=== PATIENT | male | born 1990 | race Two or more races ===

== ENCOUNTER 2024-09-01 17:01 | Emergency (ER) | payer MEDICAID, SELFPAY ==
--- NOTE | 2024-09-01 17:32 | PC.NURSE ---
NO ANSWER WHEN CALLED TO BE SEEN BY PROVIDER
--- NOTE | 2024-09-01 17:48 | PC.NURSE ---
no answer in lobby or in front of ER
--- NOTE | 2024-09-01 18:10 | PC.NURSE ---
ATTEMPTED TO CALL PATIENT 3 TIMES WITH NO ANSWER; PATIENT ELOPED FROM THE EMERGENCY DEPARTMENT.
--- NOTE | 2024-09-01 18:21 | PD.EDADDENDU ---
Emergency Room Addendum Addendum Narrative: I was told the patient eloped. I did not see the patient. Vivek White MD
== END 2024-09-01 18:12 | disposition left against medical advice (07) ==
LOC: SERX 18:10
PROVIDERS: Emergency Provider Emergency Medicine
DX: Z53.21 Procedure and treatment not carried out due to patient leaving prior to being seen by health care provider (principal)

== ENCOUNTER 2024-10-07 17:17 | Emergency (ER) | payer MEDICAID, SELFPAY ==
[2024-10-07 17:23] VITALS: BP 162/100; PULSE 127; RESP 20; TEMP 36.9; O2SAT 95
--- NOTE | 2024-10-07 18:18 | EKG_ITS ---
[facility] Test Date: 2024-10-07 Pat Name: BETH CABRERA Department: Room: - Gender: Male Field Sampling Technician: : 1990 Requested By: ED Temporary Provider Order Number: [id number] Reading MD: ED Temporary Provider Measurements Intervals [place] Rate: 102 P: 6 MD: 141 QRS: -10 QRSD: 92 T: -9 QT: 361 QTc: 471 Interpretive Statements SINUS TACHYCARDIA MODERATE VOLTAGE CRITERIA FOR LVH, CONSIDER NORMAL VARIANT [MEETS CRITERIA IN ONE OF: R(aVL), S(V1), R(V5), R(V5/V6)+S(V1)] ABNORMAL RHYTHM ECG No previous ECG available for comparison /store/S0/[id number]/ecg/[id number].pdf
--- NOTE | 2024-10-07 18:26 | PD.EDADULT ---
ED General RME/HPI General Chief complaint: Anxiety Stated complaint: HALLUCINATIONS s/p COCAINE USE Time Seen by Provider: 10/07/24 18:22 Arrival date/time: 10/07/24 17:17 Chest pain, on drugs per mother HPI ongoing for the past 2 days. Mother at bedside states the patient was calling making very bizarre statements that people are shooting at him. At the time of the exam the patient complains of chest pain and side pain. Patient is awake alert oriented somewhat distracted no other complaints. Patient states he has relapsed and backs on cocaine for the past 2 days. Patient states he has been clean for the past month. Mother outside the room states the patient relapses every month. Related Data Previous Rx's ?Medication ?Instructions ?Recorded cyclobenzaprine 10 mg tablet 10 mg PO HS #10 tabs 09/09/18 ibuprofen 800 mg tablet (IBU) 800 mg PO TID PRN pain #30 tabs 09/09/18 ibuprofen 800 mg tablet 800 mg PO Q6H pain #20 tabs 07/15/24 Allergies Allergy/AdvReac Type Severity Reaction Status Date / Time No Known Allergies Allergy Verified 09/01/24 17:02 Review of Systems Review of Systems Narrative Review of Systems: GEN: No fever, no chills, no weight loss EYES: No discharge, no visual changes, no pain HEENT: No ear pain, no congestion, no sore throat PULM: No shortness of breath, no cough, no congestion CV: + chest pain, no dyspnea on exertion, no palpitations GI: No nausea, no vomiting, no diarrhea, no pain, no constipation : No frequency, no urgency, no dysuria MUSC/SKEL: No joint pain, no back pain SKIN: No rash PSYCH: No hallucinations, no depression HEME/LYMPH: No easy bleeding or bruising tendencies NEURO: No weakness, no headache Past Medical History Past Medical History CARDIAC: Negative Congestive Heart Failure RESPIRATORY: Negative Chronic Obstructive Pulmonary Disease (COPD) GENITOURINARY: Negative Renal Disease ENDOCRINE: Negative Diabetes Mellitus Type 1 or Diabetes Mellitus Type 2 Social History SMOKING STATUS: Never smoker ED Exam Narrative Physical exam: [General: Obese nervous fidgety, but not in any acute distress Head normocephalic HEENT: Within acceptable limits Neck is supple nontender Chest equal chest rise left anterior chest tender to palpation. No ecchymosis induration ulceration Respiratory: Clear to auscultation no wheezes crackles or rubs CV: Rate rhythm is regular no murmurs rubs or clicks Abdomen is distended secondary to body habitus soft nontender no masses positive bowel sounds all 4 quadrants Back: No CVA tenderness no spinous process tenderness from cervical spine thoracic and lumbar spine Skin: Intact no petechiae rash induration ulceration or crepitus Extremities: Moving all extremity against resistance cap refill less than 2 seconds neurosensory intact Neuro: Awake alert oriented x3 Glascow coma 15 no focal deficits] Course Quality Measures none Orders Category Date Time Status EKG (ED ONLY) *Do not use* NOW Care 10/07/24 18:18 Completed EKG (ED Only) Stat Exams 10/07/24 18:18 Draft CBC Stat Lab 10/07/24 19:15 Completed CMP [Comprehensive Metabolic Panel] Stat Lab 10/07/24 19:15 Completed Creatine Kinase Stat Lab 10/07/24 19:15 Completed Creatine Kinase Stat Lab 10/07/24 21:16 Completed Drug Screen,Urine Stat Lab 10/07/24 19:58 Completed Urinalysis Stat Lab 10/07/24 19:58 Completed Sodium Chloride 0.9% 1000 ml [Ns] 1,000 ml Med 10/07/24 19:51 Discontinued IV 999 mls/hr Sodium Chloride 0.9% 1000 ml [Ns] 1,000 ml Med 10/07/24 19:51 Discontinued IV 999 mls/hr Vital Signs Vital signs: Vital Signs Temperature 98.5 F 10/07/24 17:23 Pulse Rate 127 H 10/07/24 17:23 Respiratory Rate 20 10/07/24 17:23 Blood Pressure 162/100 H 10/07/24 17:23 Pulse Oximetry (%) 95 10/07/24 17:23 Oxygen Delivery Method Room Air 10/07/24 17:23 [facility] Patient data External records reviewed:: [facility] previous records and EMS form Clinical information provided by:: patient and EMS Social determinants that could affect healthcare access:: none Patient has the following chronic illnesses:: None How is presenting disease/condition affected by chronic disease/condition?: uneffected by Evaluation data The following diagnostics were reviewed and interpreted by me:: lab results and EKG tracing(s) Lab and/or radiology exams considered but not ordered:: EKG performed at 1832 shows a ventricular rate of 102 [place] interval of 141 QRS of 92 QTc of 420 this is sinus tachycardia. CBC shows a mild leukocytosis no anemia thrombocytopenia CMP shows no significant electrolyte imbalances renal impairment transaminitis or T. bili elevation Creatinine kinase is elevated 470. Creatinine kinase is decreased to 363. Interpretation Summary: Cocaine abuse, early rhabdo Medications Medications considered but not ordered:: None Medication administrations:: Medication Administration History Discontinued Medications Sodium Chloride (Ns) 1,000 mls @ 999 mls/hr IV .Q1H1M ONE Stop: 10/07/24 20:51 Last Infusion: 10/07/24 21:56 Dose: Infused Documented By: Admin: 10/07/24 20:02 Dose: 999 mls/hr Documented By: EE Sodium Chloride (Ns) 1,000 mls @ 999 mls/hr IV .Q1H1M ONE Stop: 10/07/24 20:51 Last Infusion: 10/07/24 21:56 Dose: Infused Documented By: Admin: 10/07/24 20:03 Dose: 999 mls/hr Documented By: EE None Consultations Consultation(s) initiated? (list below): No Diagnosis Differential Diagnosis ED Complaint MDM: Polysubstance abuse cocaine abuse rhabdomyolysis Most likely diagnosis given after review of the tests above:: Cocaine abuse rhabdomyolysis Admission Indicated Admission indicated?: not indicated Explain why admission is indicated or not indicated:: Stable for outpatient follow-up Admission Request Was there a request for admission?: No Disposition Plan Disposition Plan: Discharge Discharge Attestation Discharge Attestation: The patient and all family members were given an opportunity to ask questions and understood the discharge instructions. Discharge instructions specifically effects, indications for sooner follow up or return to the emergency department, and the expected course of current diagnosis. Patient condition: Stable Medical Decision Making Differential Diagnosis Differential Diagnosis: Polysubstance abuse cocaine abuse rhabdomyolysis Lab Data 10/07/24 19:15 10/07/24 19:15 Labs: Lab Results 10/07/24 10/07/24 10/07/24 Range/Units 19:15 19:58 21:16 WBC 13.4 H (3.8-10.6) Thou/mm3 RBC 5.11 (4.50-5.90) Miln/mm3 Hgb 14.7 (13.5-16.0) g/dL Hct 41.6 (41.0-53.0) % MCV 81 (80-100) fL MCH 28.8 (25.0-35.0) pg MCHC 35.3 (31.0-37.0) g/dl RDW Std Deviation 38.0 (35.1-43.9) fL Plt Count 239 (140-440) Thou/mm3 Neut % (Auto) 77 (37-80) % Lymph % (Auto) 13 (10-50) % Armstrong % (Auto) 8 (0-12) % Eos % (Auto) 1 (0-10) % Baso % (Auto) 1 (0-2.5) % Neut # (Auto) 10.3 H (1.8-7.7) Thou/mm3 Lymph # (Auto) 1.8 (1.0-4.8) Thou/mm3 Armstrong # (Auto) 1.1 H (0.0-0.8) Thou/mm3 Eos # (Auto) 0.2 (0.0-0.5) Thou/mm3 Baso # (Auto) 0.1 (0.0-0.2) Thou/mm3 Immature Gran # (Auto) 0.03 H (0.00-0.00) Thou/mm3 Absolute Nucleated RBC 0.00 (0.00-0.00) Thou/mm3 Immature Gran % 0 (0-0) % Nucleated RBC % 0 (0) /100 WBC Sodium 136 (136-145) mMol/L Potassium 3.4 (3.4-5.1) mMol/L Chloride 102 (98-107) mMol/L Carbon Dioxide 23.2 (20.0-31.0) mMol/L Anion Gap 11 (7-16) BUN 14 (9-23) mg/dL Creatinine 1.1 (0.6-1.3) mg/dL Estim Creat Clear Calc 116.4 (>60) mL/min eGFR > 60 (60 - ) See Note BUN/Creatinine Ratio 13 (12-20) Ratio Glucose 91 (74-106) mg/dL Calculated Osmolality 272 L (275-295) Calcium 9.2 (8.3-10.6) mg/dL Corrected Calcium 9.2 (8.5-10.1) mg/dL Total Bilirubin 1.1 (0.3-1.2) mg/dL AST 15 (0-34) U/L ALT 25 (10-49) U/L Alkaline Phosphatase 95 (46-116) U/L Total Creatine Kinase 446 H 363 H D (34-171) U/L Total Protein 7.8 (5.7-8.2) gm/dL Albumin 4.9 (3.5-5.0) gm/dL Globulin 2.9 (2.3-3.5) gm/dL Albumin/Globulin Ratio 1.7 (1.2-2.2) Ur Collection Type Clean Catch Urine Color Lt-Yellow (Lt Yel-Yel) Urine Clarity Clear (Clear/Hazy) Urine pH 6.0 (5.0-7.0) Ur Specific [place] 1.008 (1.001-1.035) Urine Protein Negative (Neg - Trace) Urine Glucose (UA) Negative (Negative) Urine Ketones 2+ A (Negative) Urine Blood Negative (Negative) Urine Nitrite Negative (Negative) Urine Bilirubin Negative (Negative) Urine Urobilinogen (Auto) Negative (0.0-1.0) mg/dL Ur Leukocyte Esterase Negative (Negative) Urine RBC 1 (0-3) /hpf Urine WBC < 1 (0-5) /hpf Ur Squamous Epith Cells 0 (0-5) /hpf Urine Bacteria Rare (None) Urine Opiates Screen Negative (Negative) Urine Fentanyl Screen Negative (Negative) Ur Barbiturates Screen Negative (Negative) U Amphetamin/Meth Scrn Negative (Negative) U Benzodiazepines Scrn Negative (Negative) U Cocaine Metab Screen Positive A (Negative) U Marijuana (THC) Screen Negative (Negative) Discharge Plan Plan Patient Disposition: HOME (Self Care) Patient condition on transfer: Stable Prescriptions/Referrals Prescriptions/Med Rec: No Action cyclobenzaprine 10 mg tablet 10 mg PO HS Qty: 10 0RF ibuprofen [IBU] 800 mg tablet 800 mg PO TID PRN (Reason: pain) Qty: 30 0RF ibuprofen 800 mg tablet 800 mg PO Q6H Qty: 20 0RF Referrals: No Primary/Family,Physician [Primary Care Provider] - In 1 week Problem List Clinical Impression: Cocaine abuse, Rhabdomyolysis Patient/Caregiver Discharge Instructions Education Materials: Cocaine: Getting Help, Cocaine: Understanding Its Effects, ED Rhabdomyolysis Additional Instructions: Drink plenty of fluids to flush your system, avoid all addictive substances. Follow-up with your primary care doctor. Print Language: Nepali Stand Alone Forms: Kelsey Award Info., Patient Portal Info Letter, Work/School Release PA/LEAD PORTFOLIO MANAGER Supervising Physician PA/LEAD PORTFOLIO MANAGER Supervising Physician: Abelino Caballero ENP
[2024-10-07 18:55] VITALS: BMI 32.8
[2024-10-07 19:00] VITALS: BP 136/89; PULSE 96; RESP 16; TEMP 36.8; O2SAT 94
[2024-10-07 19:20] LABS: Basophils # (Auto) 0.1 Thou/mm3 (0.0-0.2); Basophils % (Auto) 1 % (0-2.5); Eosinophils # (Auto) 0.2 Thou/mm3 (0.0-0.5); Eosinophils % (Auto) 1 % (0-10); Hematocrit 41.6 % (41.0-53.0); Hemoglobin 14.7 g/dL (13.5-16.0); Immature Granulocytes % (Auto) 0 % (0-0); Immature Granulocytes Auto 0.03 Thou/mm3 (0.00-0.00); Lymphocytes # (Auto) 1.8 Thou/mm3 (1.0-4.8); Lymphocytes % (Auto) 13 % (10-50); Mean Corpuscular HGB Conc 35.3 g/dl (31.0-37.0); Mean Corpuscular Hemoglobin 28.8 pg (25.0-35.0); Mean Corpuscular Volume 81 fL (80-100); Monocytes # (Auto) 1.1 Thou/mm3 (0.0-0.8); Monocytes % (Auto) 8 % (0-12); Neutrophils # (Auto) 10.3 Thou/mm3 (1.8-7.7); Neutrophils % (Auto) 77 % (37-80); Nucleated Red Blood Cell % 0 /100 WBC (0); Platelet Count 239 Thou/mm3 (140-440); Red Blood Count 5.11 Miln/mm3 (4.50-5.90); White Blood Count 13.4 Thou/mm3 (3.8-10.6)
[2024-10-07 19:45] LABS: Alanine Aminotransferase 25 U/L (10-49); Albumin, Serum 4.9 gm/dL (3.5-5.0); Albumin/Globulin Ratio 1.7 (1.2-2.2); Alkaline Phosphatase 95 U/L (46-116); Anion Gap 11 (7-16); Aspartate Amino Transferase 15 U/L (0-34); BUN/Creatinine Ratio 13 Ratio (12-20); Bilirubin,Total 1.1 mg/dL (0.3-1.2); Blood Urea Nitrogen 14 mg/dL (9-23); Calcium 9.2 mg/dL (8.3-10.6); Calcium (Corrected) 9.2 mg/dL (8.5-10.1); Carbon Dioxide 23.2 mMol/L (20.0-31.0); Chloride 102 mMol/L (98-107); Creatine Kinase 446 U/L (34-171); Creatinine (Component) 1.1 mg/dL (0.6-1.3); Estimated Creatinine Clearance 116.4 mL/min (>60); Globulin 2.9 gm/dL (2.3-3.5); Glucose 91 mg/dL (74-106); Osmolality,Calculated 272 (275-295); Potassium 3.4 mMol/L (3.4-5.1); Sodium 136 mMol/L (136-145); Total Protein 7.8 gm/dL (5.7-8.2); eGFR > 60 See Note
[2024-10-07] MEDS: SODIUM CHLORIDE 0.9% 1000 ML 1,000 ML 999 ML IV ×2 (20:02→20:03)
[2024-10-07 20:12] LABS: Collection Type, Urine Clean Catch; Squamous Epithelial Cell,Urine 0 /hpf (0-5)
[2024-10-07 20:18] LABS: Bacteria,Urine Rare; Bilirubin,Urine Negative (Negative); Blood,Urine Negative (Negative); Clarity,Urine Clear (Clear/Hazy); Color,Urine Lt-Yellow (Lt Yel-Yel); Glucose, Urine Negative (Negative); Ketones,Urine 2+ (Negative); Leukocyte Esterase,Urine Negative (Negative); Nitrite,Urine Negative (Negative); Protein,Urine Negative (Neg - Trace); RBC,Urine 1 /hpf (0-3); Specific Gravity,Urine 1.008 (1.001-1.035); Urobilinogen,Urine Negative mg/dL (0.0-1.0); WBC,Urine < 1 /hpf (0-5)
[2024-10-07 20:32] LABS: Amphetamine/Methamp Scrn,U Negative (Negative); Barbiturate Screen,Urine Negative (Negative); Benzodiazepines Screen,Urine Negative (Negative); Benzoylecgonine Screen, Ur Positive (Negative); Fentanyl Screen,Urine Negative (Negative); Opiate Screen,Urine Negative (Negative); THC Screen,Urine Negative (Negative)
[2024-10-07 21:48] LABS: Creatine Kinase 363 U/L (34-171)
[2024-10-07 22:12] VITALS: BP 116/67; PULSE 87; RESP 16; TEMP 36.4; O2SAT 95
== END 2024-10-07 22:14 | disposition home or self-care (01) ==
PROVIDERS: Registered Nurse General Practice; Emergency Provider Emergency Medicine
DX: F14.10 Cocaine abuse, uncomplicated (principal); M62.82 Rhabdomyolysis; R00.0 Tachycardia, unspecified; F41.9 Anxiety disorder, unspecified
CPT/HCPCS: 36415; 80053; 80307; 81001; 82550; 85025; 93005; 96360; 96361; 99284; J7030